=== PATIENT | male | born 1960 | race Hispanic/Latino ===

== ENCOUNTER 2019-06-12 10:32 | Emergency (ER) | payer BC ==
[2019-06-12] MEDS ORDERED: PREDNISONE 20 MG TABLET ONE (11:01)
== END 2019-06-12 11:24 | disposition home or self-care (01) ==
LOC: EDH 10:32
DX: T63.441A Toxic effect of venom of bees, accidental (unintentional), initial encounter (principal); F41.9 Anxiety disorder, unspecified; I10 Essential (primary) hypertension; Z72.0 Tobacco use; Y92.9 Unspecified place or not applicable